=== PATIENT | female | born 1955 | race Caucasian/White ===

== ENCOUNTER 2017-03-23 15:03 | Emergency (ER) | payer MEDICARE, MEDICAID ==
[2017-03-23] MEDS ORDERED: Ondansetron ODT TAB* 4 MG PO ONE (15:40)
[2017-03-23] MEDS ORDERED: NS 0.9% 1000 ML* 1,000 ML IV ONE ×2 (16:21→16:36)
[2017-03-23] MEDS ORDERED: Metoclopramide IV* 5 MG/ML 2 ML VIAL IV ONE (16:21)
[2017-03-23 16:32] LABS: Hematocrit 32 % (35-47); Hemoglobin 10.9 g/dl (12.0-16.0); Mean Corpuscular HGB Conc 35 g/dl (31-36); Mean Corpuscular Hemoglobin 33 pg (27-31); Mean Corpuscular Volume 94 fL (80-97); Mean Platelet Volume 8 um3 (7.4-10.4); Red Blood Count 3.36 10^6/ul (4.0-5.4); Red Cell Distribution Width 14 % (10.5-15); White Blood Count 10.7 10^3/ul (3.5-10.8)
[2017-03-23 16:47] LABS: Albumin 4.1 g/dL (3.2-5.2); BUN/Creatinine Ratio 8.6 (8-20); C Reactive Protein 8.26 mg/L (< 5.00); Calcium 9.4 mg/dL (8.6-10.3); EGFR African American 13.5 (>60); EGFR Non-African American 10.5 (>60); Globulin 4.4 g/dL (2-4); Magnesium 1.8 mg/dL (1.9-2.7); Potassium 3.8 mmol/L (3.5-5.0); Total Bilirubin 0.5 mg/dL (0.2-1.0); Total Protein 8.5 g/dL (6.4-8.9)
[2017-03-23 18:06] VITALS: BP 159/79
--- NOTE | 2017-03-23 18:17 | ED ---
Michelle Miller SooYoung, scribed for Richard Britt MD on 03/23/17 at 1526 . GI/ HPI - HPI Summary HPI Summary: A 61 y/o F presents to ED with c/o n/v onset hours [employer]. Pt was at dialysis this afternoon and toward the end of it she began to vomit. Vomiting continued after dialysis ended and she was attempting to leave [facility]. Associated sx: diaphoresis, rhinorrhea. She has chills but she states this is common after dialysis. Denies pain, dizziness, SOB, CP, fever, changes in BM, dysuria, abd pain. Pt states she missed dialysis yesterday. She ate breakfast this AM and felt fine afterwards. No smoking. No ETOH. - History of Current Complaint Chief Complaint: EDNauseaVomitDiarrh Time Seen by Provider: 03/23/17 15:23 Stated Complaint: VOMITING Hx Obtained From: Patient Onset/Duration: Started Hours Ago, Still Present Timing: Constant Severity: Moderate Current Severity: Moderate Pain Intensity: 0 - out of 10 Associated Signs and Symptoms: Positive: Nausea, Vomiting, Diaphoresis, Other: - pos: rhinorrhea. Negative: Back Pain, Dizziness, Constipation, Diarrhea, Dysuria, Flank Pain, Abdominal Pain, Chest Pain - Additional Pertinent History Primary Care Physician: [id number] - Allergy/Home Medications Allergies/Adverse Reactions: Allergies Allergy/AdvReac Type Severity Reaction Status Date / Time Clindamycin Allergy Mild Hives Verified 09/18/15 17:16 Latex Allergy Mild Hives Verified 09/18/15 17:16 Lactose Intolerance (GI) Allergy Diarrhea Verified 09/18/15 17:16 PMH/Surg Hx/FS Hx/Imm Hx Previously Healthy: No Endocrine/Hematology History: Reports: Hx Diabetes, Hx Anemia Cardiovascular History: Reports: Hx Congestive Heart Failure, Hx Hypertension, Other Cardiovascular Problems/Disorders Denies: Hx Peripheral Vascular Disease Respiratory History: Reports: Hx Asthma History: Reports: Hx Chronic Renal Failure, Hx Dialysis - CHRONIC KIDNEY DISEASE/FAILURE Musculoskeletal History: Reports: Other Musculoskeletal History - 3 yrs ago Broken R leg in 3 places. L leg fractured in 2005 Denies: Hx Arthritis, Hx Osteoporosis Sensory History: Reports: Hx Contacts or Glasses, Other Sensory Impairments - diabetic retinopathy Opthamlomology History: Reports: Hx Contacts or Glasses, Other Sensory Impairments - diabetic retinopathy Neurological History: Denies: Hx Headaches, Hx Seizures, Hx Transient Ischemic Attacks (TIA) Psychiatric History: Denies: Other Psychiatric Issues/Disorders - Delusions - Cancer History Cancer Type, Location and Year: Cervical and Uterine, 1998 - Surgical History Surgery Procedure, Year, and Place: HYSTERECTOMY 1998, LEFT 4TH TOE AMPUTATION 2009, GANGLION CYST REMOVED 1977. 2011 Broken R leg in 3 places. Plate inserted. - Immunization History Date of Tetanus Vaccine: unk Date of Influenza Vaccine: unk Infectious Disease History: No Infectious Disease History: Denies: Hx Clostridium Difficile, Hx Hepatitis, Hx Human Immunodeficiency Virus (HIV), Hx of Known/Suspected MRSA, Hx Shingles, Hx Tuberculosis, Hx Known/ Suspected VRE, Hx Known/Suspected VRSA, History Other Infectious Disease, Traveled Outside the [place] in Last 30 Days - Family History Known Family History: Positive: Hypertension, Diabetes - Social History Occupation: Disabled Lives: [facility] Alcohol Use: None Hx Substance Use: No Substance Use Type: Reports: None Hx Tobacco Use: Yes Smoking Status (MU): Former Smoker Type: Cigarettes Have You Smoked in the Last Year: No - 1974 is the last time smoked Review of Systems Positive: Skin Diaphoresis. Negative: Fever, Chills Positive: Nasal Discharge - rhinorrhea Negative: Chest Pain Negative: Shortness Of Breath Positive: Vomiting, Nausea. Negative: Abdominal Pain, Diarrhea Negative: dysuria Negative: Arthralgia, Myalgia Neurological: Other - neg: dizziness All Other Systems Reviewed And Are Negative: Yes Physical Exam - Summary Physical Exam Summary: The patient is well-nourished in no acute distress and in no acute pain. The skin is warm and mildly diaphoretic and skin color reflects adequate perfusion. HEENT: The head is normocephalic and atraumatic. The pupils are equal and reactive. The conjunctivae are clear and without drainage. Nares are patent and without drainage. Mouth reveals moist mucous membranes and the throat is without erythema and exudate. The external ears are intact. The ear canals are patent and without drainage. The tympanic membranes are intact. Neck is supple with full range of motion and non-tender. There are no carotid bruits. There is no neck vein distension. Respiratory: Chest is non-tender. Lungs are clear to auscultation and breath sounds are symmetrical and equal. Cardiovascular: Heart is regular rate and rhythm. There is no murmur or rub auscultated. There is no peripheral edema and pulses are symmetrical and equal. Abdomen: The abdomen is obese, soft and non-tender. There are normal bowel sounds heard in all four quadrants and there is no organomegaly palpated. Musculoskeletal: There is no back pain noted. Extremities are non-tender with full range of motion. There is good capillary refill. There is no peripheral edema or calf tenderness elicited. Neurological: Patient is alert and oriented to person, place and time. The patient has symmetrical motor strength in all four extremities. Cranial nerves are grossly intact. Deep tendon reflexes are symmetrical and equal in all four extremities. Psychiatric: The patient has an appropriate affect and does not exhibit any anxiety or depression. Triage Information Reviewed: Yes Vital Signs On Initial Exam: Initial Vitals Temp Pulse Resp BP Pulse Ox 98.0 F 86 20 177/132 100 03/23/17 15:07 03/23/17 15:07 03/23/17 15:07 03/23/17 15:07 03/23/17 15:07 Vital Signs Reviewed: Yes Diagnostics - Vital Signs Vital Signs Temp Pulse Resp BP Pulse Ox 03/23/17 15:09 98.0 F 85 20 177/132 95 03/23/17 15:07 98.0 F 86 20 177/132 100 - Laboratory Lab Results: Lab Results 03/23/17 03/23/17 03/23/17 Range/Units 16:20 16:20 16:20 WBC 10.7 (3.5-10.8) 10^3/ul RBC 3.36 L (4.0-5.4) 10^6/ul Hgb 10.9 L (12.0-16.0) g/dl Hct 32 L (35-47) % MCV 94 (80-97) fL MCH 33 H (27-31) pg MCHC 35 (31-36) g/dl RDW 14 (10.5-15) % Plt Count 228 (150-450) 10^3/ul MPV 8 (7.4-10.4) um3 Neut % (Auto) 86.5 H (38-83) % Lymph % (Auto) 7.2 L (25-47) % Thomas % (Auto) 5.5 (1-9) % Eos % (Auto) 0.5 (0-6) % Baso % (Auto) 0.3 (0-2) % Absolute Neuts (auto) 9.3 H (1.5-7.7) 10^3/ul Absolute Lymphs (auto) 0.8 L (1.0-4.8) 10^3/ul Absolute Monos (auto) 0.6 (0-0.8) 10^3/ul Absolute Eos (auto) 0 (0-0.6) 10^3/ul Absolute Basos (auto) 0 (0-0.2) 10^3/ul Absolute Nucleated RBC 0 10^3/ul Nucleated RBC % 0 INR (Anticoag Therapy) (0.89-1.11) Sodium 132 L (133-145) mmol/L Potassium 3.8 (3.5-5.0) mmol/L Chloride 88 L (101-111) mmol/L Carbon Dioxide 32 (22-32) mmol/L Anion Gap 12 H (2-11) mmol/L BUN 37 H (6-24) mg/dL Creatinine 4.31 H (0.51-0.95) mg/dL Est GFR ( Amer) 13.5 (>60) Est GFR (Non-Af Amer) 10.5 (>60) BUN/Creatinine Ratio 8.6 (8-20) Glucose 139 H (70-100) mg/dL Lactic Acid 1.1 (0.5-2.0) mmol/L Calcium 9.4 (8.6-10.3) mg/dL Magnesium 1.8 L (1.9-2.7) mg/dL Total Bilirubin 0.50 (0.2-1.0) mg/dL AST 16 (13-39) U/L ALT 20 (7-52) U/L Alkaline Phosphatase 273 H (34-104) U/L C-Reactive Protein 8.26 H (< 5.00) mg/L Total Protein 8.5 (6.4-8.9) g/dL Albumin 4.1 (3.2-5.2) g/dL Globulin 4.4 H (2-4) g/dL Albumin/Globulin Ratio 0.9 L (1-3) Lipase 30 (11.0-82.0) U/L // Range/Units 16:20 WBC (3.5-10.8) 10^3/ul RBC (4.0-5.4) 10^6/ul Hgb (12.0-16.0) g/dl Hct (35-47) % MCV (80-97) fL MCH (27-31) pg MCHC (31-36) g/dl RDW (10.5-15) % Plt Count (150-450) 10^3/ul MPV (7.4-10.4) um3 Neut % (Auto) (38-83) % Lymph % (Auto) (25-47) % Thomas % (Auto) (1-9) % Eos % (Auto) (0-6) % Baso % (Auto) (0-2) % Absolute Neuts (auto) (1.5-7.7) 10^3/ul Absolute Lymphs (auto) (1.0-4.8) 10^3/ul Absolute Monos (auto) (0-0.8) 10^3/ul Absolute Eos (auto) (0-0.6) 10^3/ul Absolute Basos (auto) (0-0.2) 10^3/ul Absolute Nucleated RBC 10^3/ul Nucleated RBC % INR (Anticoag Therapy) 0.91 (0.89-1.11) Sodium (133-145) mmol/L Potassium (3.5-5.0) mmol/L Chloride (101-111) mmol/L Carbon Dioxide (22-32) mmol/L Anion Gap (2-11) mmol/L BUN (6-24) mg/dL Creatinine (0.51-0.95) mg/dL Est GFR ( Amer) (>60) Est GFR (Non-Af Amer) (>60) BUN/Creatinine Ratio (8-20) Glucose (70-100) mg/dL Lactic Acid (0.5-2.0) mmol/L Calcium (8.6-10.3) mg/dL Magnesium (1.9-2.7) mg/dL Total Bilirubin (0.2-1.0) mg/dL AST (13-39) U/L ALT (7-52) U/L Alkaline Phosphatase (34-104) U/L C-Reactive Protein (< 5.00) mg/L Total Protein (6.4-8.9) g/dL Albumin (3.2-5.2) g/dL Globulin (2-4) g/dL Albumin/Globulin Ratio (1-3) Lipase (11.0-82.0) U/L Result Diagrams: 03/23/17 16:20 03/23/17 16:20 Lab Statement: Any lab studies that have been ordered have been reviewed, and results considered in the medical decision making process. Re-Evaluation - Re-Evaluation 1 Re-Evaluation Time: 16:12 Change: Unchanged Comment: Pt still feeling nausea. Spoke with dialysis techs, pt's baseline is delusional, states she's getting a kidney transplant, is to [facility]. Refusing psychiatric meds, has been refusing dialysis treatment in past. Will give fluids, antiemetics, and get labs. 2 Re-Evaluation Time: 18:09 Change: Improved Comment: Discussing results with pt. Pt states feeling better. Has Zofran at home. Will D/C home without meds. GIGU Course/Dx - Course Course Of Treatment: Pt is a 61 y/o F presenting with n/v onset hours [employer]. Pt was at dialysis this afternoon and toward the end of it she began to vomit. Vomiting continued after dialysis ended. Associated sx: diaphoresis, rhinorrhea. She has chills but she states this is common after dialysis. Denies pain, dizziness, SOB, CP, fever, changes in BM, dysuria, abd pain. Pt states she missed dialysis yesterday. She ate breakfast this AM and felt fine afterwards. No smoking. No ETOH. Pt given fluids, Zofran, Reglan in ED. Upon reeval, pt states feeling better. She says she has Zofran at home. Will D/C home without meds. - Diagnoses Differential Diagnoses - Female: Bowel Obstruction, Dehydration, Vomiting Provider Diagnoses: Nausea Discharge - Discharge Plan Condition: Stable Disposition: HOME Patient Education Materials: Acute Nausea and Vomiting (ED) Referrals: Cash Patten MD [Primary Care Provider] - Additional Instructions: Please return to the ED if you experience new or worsening symptoms. The documentation as recorded by the Michelle moise SooYoung accurately reflects the service I personally performed and the decisions made by me, Richard Britt MD.
== END 2017-03-23 18:46 | disposition home or self-care (01) ==
LOC: ED 15:03
DX: R11.2 Nausea with vomiting, unspecified (principal); Z87.891 Personal history of nicotine dependence
CPT/HCPCS: 36415; 80053; 83605; 83690; 83735; 85025; 85610; 86140; 96374; 99284; A9270-GY

== ENCOUNTER 2017-09-07 09:20 | Emergency (ER) | payer MEDICARE, MEDICAID ==
[2017-09-07 12:06] LABS: Hematocrit 33 % (35-47); Hemoglobin 11.1 g/dl (12.0-16.0); Mean Corpuscular HGB Conc 34 g/dl (31-36); Mean Corpuscular Hemoglobin 32 pg (27-31); Mean Corpuscular Volume 95 fL (80-97); Mean Platelet Volume 9 um3 (7.4-10.4); Red Blood Count 3.42 10^6/ul (4.0-5.4); Red Cell Distribution Width 14 % (10.5-15); White Blood Count 6.9 10^3/ul (3.5-10.8)
--- NOTE | 2017-09-07 12:07 | ED ---
Ayaz Miller Gabriel, scribed for Dick Valverde MD on 09/07/17 at 1106 . Upper Extremity Pain - HPI Summary HPI Summary: This patient is a 61 year old F presenting to [facility] with a chief complaint of a clot in her fistula located in upper left arm. Patient reports diarrhea and vomiting. Patient denies SOB and CP. She had dialysis yesterday and went in today for another treatment and it was unsuccessful due to clot in the fistula. She needs to be cleared to see a vascular surgeon in [place]. Pt [place] and is slightly delusional. - History of Current Complaint Chief Complaint: EDExtremityUpper Stated Complaint: CLOTTED FISTULA Time Seen by Provider: 09/07/17 10:56 Hx Obtained From: Patient Mechanism Of Injury: Other - clot Onset/Duration: Still Present Timing: Constant Severity Initially: Mild Severity Currently: Mild Associated Signs & Symptoms: Positive: Nausea, Vomiting. Negative: Chest Pain, SOB - Allergies/Home Medications Allergies/Adverse Reactions: Allergies Allergy/AdvReac Type Severity Reaction Status Date / Time Clindamycin Allergy Mild Hives Verified 09/18/15 17:16 Latex Allergy Mild Hives Verified 09/18/15 17:16 Lactose Intolerance (GI) Allergy Diarrhea Verified 09/18/15 17:16 PMH/Surg Hx/FS Hx/Imm Hx Previously Healthy: No Endocrine/Hematology History: Reports: Hx Diabetes, Hx Anemia Cardiovascular History: Reports: Hx Congestive Heart Failure, Hx Hypertension, Other Cardiovascular Problems/Disorders Denies: Hx Peripheral Vascular Disease Respiratory History: Reports: Hx Asthma History: Reports: Hx Chronic Renal Failure, Hx Dialysis - CHRONIC KIDNEY DISEASE/FAILURE Musculoskeletal History: Reports: Other Musculoskeletal History - 3 yrs ago Broken R leg in 3 places. L leg fractured in 2005 Denies: Hx Arthritis, Hx Osteoporosis Sensory History: Reports: Hx Contacts or Glasses, Other Sensory Impairments - diabetic retinopathy Opthamlomology History: Reports: Hx Contacts or Glasses, Other Sensory Impairments - diabetic retinopathy Neurological History: Denies: Hx Headaches, Hx Seizures, Hx Transient Ischemic Attacks (TIA) Psychiatric History: Denies: Other Psychiatric Issues/Disorders - Delusions - Cancer History Cancer Type, Location and Year: Cervical and Uterine, 1998 - Surgical History Surgery Procedure, Year, and Place: HYSTERECTOMY 1998, LEFT 4TH TOE AMPUTATION 2009, GANGLION CYST REMOVED 1977. 2011 Broken R leg in 3 places. Plate inserted. - Immunization History Date of Tetanus Vaccine: unk Date of Influenza Vaccine: unk Infectious Disease History: No Infectious Disease History: Denies: Hx Clostridium Difficile, Hx Hepatitis, Hx Human Immunodeficiency Virus (HIV), Hx of Known/Suspected MRSA, Hx Shingles, Hx Tuberculosis, Hx Known/ Suspected VRE, Hx Known/Suspected VRSA, History Other Infectious Disease, Traveled Outside the [place] in Last 30 Days - Family History Known Family History: Positive: Hypertension, Diabetes - Social History Alcohol Use: None Hx Substance Use: No Substance Use Type: Reports: None Hx Tobacco Use: Yes Smoking Status (MU): Former Smoker Type: Cigarettes Have You Smoked in the Last Year: No - 1975 is the last time smoked Review of Systems Negative: Fever, Chills Negative: Erythema Negative: Sore Throat Negative: Chest Pain Negative: Shortness Of Breath, Cough Positive: Vomiting, Diarrhea. Negative: Abdominal Pain Negative: dysuria, hematuria Negative: Myalgia, Edema Negative: Rash Neurological: Negative - dizziness All Other Systems Reviewed And Are Negative: Yes Physical Exam - Summary Physical Exam Summary: Constitutional: Well-developed, Well-nourished, Alert. (-) Distressed Skin: Warm, Dry HENT: Normocephalic; Atraumatic Eyes: Conjunctiva normal Neck: Musculoskeletal ROM normal neck. (-) JVD, (-) Stridor, (-) Tracheal deviation Cardio: Rhythm regular, rate normal, Heart sounds normal; Intact distal pulses; The pedal pulses are 2+ and symmetric. Radial pulses are 2+ and symmetric. (-) Murmur Pulmonary/Chest wall: Effort normal. (-) Respiratory distress, (-) Wheezes, (-) Rales Abd: Soft, (-) Tenderness, (-) Distension, (-) Guarding, (-) Rebound Musculoskeletal: (-) Edema palpable thrill at AFTAB fistula, the biceps is indurated and tender Lymph: (-) Cervical adenopathy Neuro: Alert, Oriented x3 Psych: Mood and affect Normal Triage Information Reviewed: Yes Vital Signs On Initial Exam: Initial Vitals Temp Pulse Resp BP Pulse Ox 97.8 F 80 17 157/86 98 09/07/17 09:22 09/07/17 09:22 09/07/17 09:22 09/07/17 09:22 09/07/17 09:22 Vital Signs Reviewed: Yes - [place] Coma Scale Coma Scale Total: 15 Diagnostics - Vital Signs Vital Signs Temp Pulse Resp BP Pulse Ox 09/07/17 09:22 97.8 F 80 17 157/86 98 - Laboratory Lab Statement: Any lab studies that have been ordered have been reviewed, and results considered in the medical decision making process. Course/Dx - Course Assessment/Plan: This patient is a 61 year old F presenting to [facility] with a chief complaint of a clot in her fistula located in upper left arm. Patient reports diarrhea and vomiting. Patient denies SOB and CP. She had dialysis yesterday and went in today for another treatment and it was unsuccessful due to clot in the fistula. She needs to be cleared to see a vascular surgeon in [place]. Pt lives in a penitentiary and is slightly delusional. Per vascular surgeon at [facility], there is no indication for labs to be performed. We discussed patient care with [facility] and they agreed to accept the patient as transfer. Patient will be transferred due to a clotted dialysis fistula with follow up from [facility]. The patient is agreeable with this plan. - Diagnoses Provider Diagnoses: clotted dialysis fistula Discharge - Discharge Plan Condition: Good Disposition: TRANS HIGHER LVL OF CARE FAC Referrals: Yocasta Weiss MD [Primary Care Provider] - Consult Consult: 11:07 Discussed patient care with [facility]. I informed them of the patients information and situation. Additionally I asked to speak to vascular surgeon. [id number] Discussed patient care with [facility], they report that after multiple attempts they are unable to reach their vascular surgeon. They believe he is the OR, they suggest I speak to the ED attending. When I spoke to the ED attending I gave him report and he agreed there is no indication for any medications to be used in route, he understands I could not reach vascular surgeon. The documentation as recorded by the Ayaz moise Gabriel accurately reflects the service I personally performed and the decisions made by me, Dick Valverde MD.
[2017-09-07 12:17] LABS: Calcium 10.7 mg/dL (8.6-10.3); EGFR African American 3.4 (>60); EGFR Non-African American 2.6 (>60); Total Bilirubin 0.3 mg/dL (0.2-1.0)
[2017-09-07 12:34] LABS: BUN/Creatinine Ratio 9.9 (8-20); Potassium 6.1 mmol/L (3.5-5.0)
[2017-09-07 12:52] VITALS: BP 151/83
== END 2017-09-07 13:25 | disposition short-term general hospital (02) ==
LOC: ED 09:20
DX: T82.868A Thrombosis due to vascular prosthetic devices, implants and grafts, initial encounter (principal); E11.9 Type 2 diabetes mellitus without complications; I12.0 Hypertensive chronic kidney disease with stage 5 chronic kidney disease or end stage renal disease; E11.22 Type 2 diabetes mellitus with diabetic chronic kidney disease; N18.6 End stage renal disease; Z99.2 Dependence on renal dialysis; I50.9 Heart failure, unspecified; J45.909 Unspecified asthma, uncomplicated; Z87.891 Personal history of nicotine dependence; D64.9 Anemia, unspecified
CPT/HCPCS: 36415; 80053; 85027; 99284

== ENCOUNTER 2017-09-14 10:47 | Emergency (ER) | payer MEDICARE, MEDICAID ==
[2017-09-14 10:59] VITALS: BP 138/72
--- NOTE | 2017-09-14 13:02 | ED ---
Progress - Progress Note Progress Note: Pt was presented to me by Edith Loyola from dialysis unit. Pt needed her femoral dialysis catheter sutured in place. We were awaiting pt's arrival. I was asked to see a critical patient and could not go immediately into Ms Philip's room. Liaz MCCORMACK told me that pt had a cab waiting, that she could not wait. Pt left without being seen. ED staff did not call a cab for the patient. I notified Edith Milla in dialysis unit at 12:50pm that pt had LWBS. Edith stated that she saw pt ambulatory in the [facility] and had heard that she "couldn 't wait". Edith stated that pt has a long hx of noncompliance. Mariely Ochoa MD 09/14/17 1301pm. Course/Dx - Diagnoses Provider Diagnoses: dialysis catheter problem, Patient left without being seen
== END 2017-09-14 12:17 | disposition left against medical advice (07) ==
LOC: ED 10:47
DX: Z53.21 Procedure and treatment not carried out due to patient leaving prior to being seen by health care provider (principal)